=== PATIENT | female | born 1950 | race Caucasian/White ===

== ENCOUNTER 2025-09-06 16:33 | Inpatient (IN) | payer MEDICARE ==
[~2025-09-06] VITALS: Ht 152.4 cm; Wt 42.2 kg
[2025-09-06 17:27] LABS: PLATELET COUNT (AUTO) 204 K/uL (150-450); RED BLOOD CELL COUNT(AUTO) 4.21 MIL/uL (4.0-5.2); RED CELL DISTRIBUTION WIDTH 15.5 % (11.5-15.0); WHITE BLOOD COUNT (AUTO) 5.6 K/uL (4.3-11.0)
[2025-09-06] MEDS ORDERED: VANCOMYCIN 1 GM /D5W 250 ML PB IV ONE (17:35)
[2025-09-06 17:36] LABS: CALCIUM, SERUM 9.4 mg/dL (8.5-10.1); CREATININE 0.7 mg/dL (0.6-1.3); SODIUM SERUM 139 mmol/L (136-145); UREA NITROGEN, BLOOD 17 mg/dL (7-18)
[2025-09-06 17:39] LABS: INR 1.11 (0.91-1.10)
[2025-09-06] MEDS: VANCOMYCIN 1 GM in IV D5W 250 ML IV ONE (17:40)
[2025-09-06] MEDS ORDERED: ONDANSETRON HCL/PF 4 MG/2 ML VIAL IVP PRN (18:30)
[2025-09-06] MEDS ORDERED: MAGNESIUM HYDROXIDE 30 ML UDC PO PRN (18:30)
[2025-09-06] MEDS ORDERED: DOSING PER PHARMACY-VANCOMYCIN IV XX PRN (18:30)
[2025-09-06] MEDS ORDERED: Z GUARD REMEDY 4 OZ OINT TP PRN (18:30)
[2025-09-06] MEDS ORDERED: ZOLPIDEM TARTRATE 5 MG TABLET PO PRN (18:30)
[2025-09-06] MEDS ORDERED: METO50TA16 PO (18:46)
[2025-09-06] MEDS ORDERED: ACET1TAB25 PO (18:46)
[2025-09-06] MEDS ORDERED: SIMV10TA98 PO (18:46)
[2025-09-06] MEDS ORDERED: LISI40TA13 PO (18:46)
[2025-09-06] MEDS: IV NS 0.9% 1,000 ML IV PRN (19:45)
[2025-09-06] MEDS: ENOXAPARIN SODIUM 40 MG/0.4 ML DISP.SYRIN SQ SCH (19:46)
[2025-09-06] MEDS: HYDROCODONE/APAP 10/325MG TABLET PO PRN (19:51)
[2025-09-06 20:00] VITALS: BP_SYST 155; BP_SYST 92; BP_SYST 99; BP_DIAS 70; BP_DIAS 99; TEMP 97.3; TEMP 98.2; O2SAT 95; O2SAT 99
[2025-09-06 21:41] VITALS: BP 155/99; TEMP 97.3; O2SAT 99
[2025-09-07] VITALS: BP 157/90; TEMP 98.1; O2SAT 99
[2025-09-07 04:00] VITALS: BP 164/92; TEMP 97.5; O2SAT 99
[2025-09-07] MEDS: VANCOMYCIN 750 MG in IV D5W 250 ML IV SCH (05:22)
[2025-09-07] MEDS: HYDROMORPHONE 1 MG/1 ML DISP.SYRIN IV ONE (05:37)
[2025-09-07 06:22] LABS: PLATELET COUNT (AUTO) 175 K/uL (150-450); RED BLOOD CELL COUNT(AUTO) 4.09 MIL/uL (4.0-5.2); RED CELL DISTRIBUTION WIDTH 15.3 % (11.5-15.0); WHITE BLOOD COUNT (AUTO) 5.3 K/uL (4.3-11.0)
[2025-09-07 06:33] LABS: CALCIUM, SERUM 8.9 mg/dL (8.5-10.1); CREATININE 0.8 mg/dL (0.6-1.3); PHOSPHORUS 3.0 mg/dL (2.5-4.9); SODIUM SERUM 143 mmol/L (136-145); UREA NITROGEN, BLOOD 12 mg/dL (7-18)
[2025-09-07 07:00] VITALS: BP 142/122; TEMP 97.3; O2SAT 95
[2025-09-07] MEDS: METOPROLOL TARTRATE 50 MG TABLET PO SCH (08:03)
[2025-09-07] MEDS: LISINOPRIL (20MG) 20 MG TABLET PO SCH (08:03)
[2025-09-07] MEDS: PANTOPRAZOLE 40 MG TABLET.DR PO SCH (08:04)
[2025-09-07] MEDS: ACETAMINOPHEN W/ CODEINE#3 1 EA TABLET PO SCH (09:00)
[2025-09-07 11:30] VITALS: BP_SYST 154; BP_SYST 168; BP_DIAS 111; BP_DIAS 93; TEMP 97.3; TEMP 97.7; O2SAT 97; O2SAT 99
[2025-09-07 16:00] VITALS: BP 162/99; TEMP 97.3; O2SAT 95
[2025-09-07] MEDS: SIMVASTATIN 20 MG TABLET PO SCH (17:19)
[2025-09-07 20:00] VITALS: BP 141/93; TEMP 97.3; O2SAT 97
[2025-09-07] MEDS: MAG HYDROX/AL HYDROX/SIMETH 30 ML UDC PO PRN (20:11)
[2025-09-08] VITALS (7 sets, daily range): BP systolic 145–168; BP diastolic 90–103; TEMP 97.3–98.6; O2SAT 95–99
[2025-09-08] MEDS: HYDROCODONE/APAP 10/325MG TABLET PO ONE (01:12)
[2025-09-08 07:32] LABS: RED BLOOD CELL COUNT(AUTO) 4.31 MIL/uL (4.0-5.2); RED CELL DISTRIBUTION WIDTH 15.9 % (11.5-15.0); WHITE BLOOD COUNT (AUTO) 3.8 K/uL (4.3-11.0)
[2025-09-08 07:41] LABS: PLATELET COUNT (AUTO) 84 K/uL (150-450)
[2025-09-08 07:58] LABS: CALCIUM, SERUM 9.0 mg/dL (8.5-10.1); CREATININE 0.7 mg/dL (0.6-1.3); PHOSPHORUS 2.9 mg/dL (2.5-4.9); SODIUM SERUM 140.0 mmol/L (136-145); UREA NITROGEN, BLOOD 10.0 mg/dL (7-18)
[2025-09-08] MEDS: ZINC SULFATE 220 MG CAPSULE PO SCH (09:00)
[2025-09-08] MEDS: ASCORBIC ACID 500 MG TABLET PO SCH (09:00)
[2025-09-08] MEDS: MULTIVITAMINS,THERAGRAN 1 UDTAB TABLET PO SCH (09:00)
[2025-09-08] MEDS: MEGESTROL ACETATE SUSP 400 MG/10 ML UDC PO SCH (09:00)
[2025-09-08] MEDS: ENSURE ENLIVE 237 ML LIQUID (VANILLA) PO SCH (09:00)
[2025-09-08 11:29] LABS: LYMPHOCYTES % (MANUAL) 18 % (16-48); MONOCYTES % (MANUAL) 5 % (0-11.0); NEUTROPHILS % (MANUAL) 77 (42-76); PLATELET ESTIMATE DECREASED
[2025-09-09] VITALS: BP 147/89; TEMP 97.3; O2SAT 98
[2025-09-09 04:00] VITALS: BP 163/90; TEMP 97.5; O2SAT 97
[2025-09-09 07:55] LABS: PLATELET COUNT (AUTO) 174 K/uL (150-450); RED BLOOD CELL COUNT(AUTO) 4.17 MIL/uL (4.0-5.2); RED CELL DISTRIBUTION WIDTH 15.9 % (11.5-15.0); WHITE BLOOD COUNT (AUTO) 5.1 K/uL (4.3-11.0)
[2025-09-09 08:00] VITALS: BP 150/100; TEMP 97.5; O2SAT 98
[2025-09-09 08:16] LABS: CALCIUM, SERUM 8.8 mg/dL (8.5-10.1); CREATININE 0.8 mg/dL (0.6-1.3); PHOSPHORUS 2.8 mg/dL (2.5-4.9); SODIUM SERUM 140.0 mmol/L (136-145); UREA NITROGEN, BLOOD 8.0 mg/dL (7-18)
[2025-09-09] MEDS ORDERED: POTASSIUM CHLORIDE 20 MEQ TAB.PRT.SR PO SCH (10:00)
[2025-09-09 11:00] VITALS: BP 160/82; O2SAT 94
[2025-09-09] MEDS: POTASSIUM CHLORIDE 20 MEQ POWDER PACKET PO ONE (11:33)
[2025-09-09 16:00] VITALS: BP 168/96; TEMP 97.2; O2SAT 100
[2025-09-09 20:00] VITALS: BP 136/77; TEMP 97.5; O2SAT 97
[2025-09-10] VITALS (7 sets, daily range): BP systolic 135–157; BP diastolic 82–107; TEMP 97.2–98.1; O2SAT 98–100
[2025-09-10 07:36] LABS: PLATELET COUNT (AUTO) 118 K/uL (150-450); RED BLOOD CELL COUNT(AUTO) 4.50 MIL/uL (4.0-5.2); RED CELL DISTRIBUTION WIDTH 15.7 % (11.5-15.0); WHITE BLOOD COUNT (AUTO) 5.0 K/uL (4.3-11.0)
[2025-09-10 08:14] LABS: CALCIUM, SERUM 8.6 mg/dL (8.5-10.1); CREATININE 0.7 mg/dL (0.6-1.3); PHOSPHORUS 2.4 mg/dL (2.5-4.9); SODIUM SERUM 138.0 mmol/L (136-145); UREA NITROGEN, BLOOD 8.0 mg/dL (7-18)
[2025-09-10] MEDS: K PHOS NEUTRAL 250 MG TABLET PO ONE (17:03)
[2025-09-11] VITALS: BP_SYST 140; BP_SYST 157; BP_DIAS 80; BP_DIAS 98; TEMP 97.5; TEMP 98.1; O2SAT 100; O2SAT 99
[2025-09-11] MEDS: MORPHINE SULFATE INJ 2 MG/ML DISP.SYRIN IV PRN (03:41)
[2025-09-11 05:00] VITALS: BP 157/96; TEMP 97.9; O2SAT 100
[2025-09-11] MEDS: VANCOMYCIN 1 GM in IV D5W 250ml IV SCH (06:00)
[2025-09-11 07:48] LABS: PLATELET COUNT (AUTO) 150 K/uL (150-450); RED BLOOD CELL COUNT(AUTO) 4.24 MIL/uL (4.0-5.2); RED CELL DISTRIBUTION WIDTH 15.8 % (11.5-15.0); WHITE BLOOD COUNT (AUTO) 5.2 K/uL (4.3-11.0)
[2025-09-11 08:00] VITALS: BP 125/93; TEMP 97.7; O2SAT 99
[2025-09-11 08:26] LABS: CALCIUM, SERUM 9.3 mg/dL (8.5-10.1); CREATININE 0.7 mg/dL (0.6-1.3); PHOSPHORUS 3.0 mg/dL (2.5-4.9); SODIUM SERUM 141.0 mmol/L (136-145); UREA NITROGEN, BLOOD 6.0 mg/dL (7-18)
[2025-09-11 16:00] VITALS: BP 162/101; TEMP 97.3; O2SAT 100
[2025-09-11 20:00] VITALS: BP 141/82; TEMP 97.5; O2SAT 97
[2025-09-11] MEDS: DOXYCYCLINE HYCLATE (100 MG) 100 MG TABLET PO SCH (22:01)
[2025-09-12] VITALS: BP 140/80; TEMP 97.5; O2SAT 100
[2025-09-12] MEDS: ACETAMINOPHEN 325 MG TABLET PO PRN (00:35)
[2025-09-12 04:00] VITALS: BP_SYST 156; BP_SYST 160; BP_DIAS 63; BP_DIAS 70; TEMP 97.5; O2SAT 99
[2025-09-12 06:26] LABS: RED BLOOD CELL COUNT(AUTO) 4.43 MIL/uL (4.0-5.2); RED CELL DISTRIBUTION WIDTH 16.1 % (11.5-15.0); WHITE BLOOD COUNT (AUTO) 4.9 K/uL (4.3-11.0)
[2025-09-12 06:41] LABS: CALCIUM, SERUM 9.7 mg/dL (8.5-10.1); CREATININE 0.6 mg/dL (0.6-1.3); PHOSPHORUS 3.4 mg/dL (2.5-4.9); SODIUM SERUM 141.0 mmol/L (136-145); UREA NITROGEN, BLOOD 9.0 mg/dL (7-18)
[2025-09-12 06:45] LABS: PLATELET COUNT (AUTO) 125 K/uL (150-450)
[2025-09-12 08:00] VITALS: BP 171/109; TEMP 97.6; O2SAT 100
[2025-09-12 08:22] VITALS: BP 163/99
== END 2025-09-12 18:57 | disposition short-term general hospital (02) | DRG 602 ==
LOC: ER 16:40 → MED 18:02 → TELE 18:57
PROVIDERS: ADMIT Student in an Organized Health Care Education/Training Program; ATTEND Student in an Organized Health Care Education/Training Program
DX: L03.115 Cellulitis of right lower limb (principal); E43 Unspecified severe protein-calorie malnutrition; I48.20 Chronic atrial fibrillation, unspecified; Z68.1 Body mass index [BMI] 19.9 or less, adult; L03.116 Cellulitis of left lower limb; I10 Essential (primary) hypertension; D69.6 Thrombocytopenia, unspecified; E78.5 Hyperlipidemia, unspecified; F03.90 Unspecified dementia, unspecified severity, without behavioral disturbance, psychotic disturbance, mood disturbance, and anxiety; I49.5 Sick sinus syndrome; Z87.891 Personal history of nicotine dependence; Z85.118 Personal history of other malignant neoplasm of bronchus and lung; Z79.899 Other long term (current) drug therapy; R60.9 Edema, unspecified; Z98.890 Other specified postprocedural states; S30.91XA Unspecified superficial injury of lower back and pelvis, initial encounter; X58.XXXA Exposure to other specified factors, initial encounter; Y92.9 Unspecified place or not applicable
CPT/HCPCS: 36415; 71045-TC; 80048-TC; 80202-TC; 83735-TC; 83880; 84100-TC; 84443-TC; 84484-TC; 85025-TC; 85027-TC; 85730-TC; 87040-TC; 93307-TC; 93970-TC; 97110-TC; 97530-TC; A4223; A6223; G0378; J1171; J1650; J2270; J3373; J3374; J7030; J7060

== ENCOUNTER 2025-09-14 22:43 | Inpatient (IN) | payer MEDICARE ==
[~2025-09-14] VITALS: Ht 152.4 cm; Wt 49.0 kg
[2025-09-14 22:40] VITALS: BP 144/83; TEMP 98.2; O2SAT 99
[~2025-09-14 22:43] MED LIST: ACET1TAB25 PO; LISI40TA13 PO; METO50TA16 PO; SIMV10TA98 PO
[2025-09-15] VITALS: BP 152/97; TEMP 98.1; O2SAT 98
[2025-09-15] MEDS ORDERED: ONDANSETRON HCL/PF 4 MG/2 ML VIAL IVP PRN
[2025-09-15] MEDS ORDERED: DOSING PER PHARMACY-VANCOMYCIN IV XX PRN
[2025-09-15] MEDS ORDERED: ACETAMINOPHEN 325 MG TABLET PO PRN
[2025-09-15] MEDS ORDERED: MAGNESIUM HYDROXIDE 30 ML UDC PO PRN
[2025-09-15] MEDS ORDERED: ZOLPIDEM TARTRATE 5 MG TABLET PO PRN
[2025-09-15] MEDS ORDERED: HYDROCODONE/APAP 10/325MG TABLET PO PRN
[2025-09-15] MEDS ORDERED: Z GUARD REMEDY 4 OZ OINT TP PRN
[2025-09-15] MEDS ORDERED: MAG HYDROX/AL HYDROX/SIMETH 30 ML UDC PO PRN
[2025-09-15] MEDS: HYDROCODONE/APAP 5/325MG TABLET PO PRN (00:30)
[2025-09-15 05:00] VITALS: BP 152/97; TEMP 98.1; O2SAT 98
[2025-09-15 06:23] LABS: PLATELET COUNT (AUTO) 102 K/uL (150-450); RED BLOOD CELL COUNT(AUTO) 3.81 MIL/uL (4.0-5.2); RED CELL DISTRIBUTION WIDTH 16.4 % (11.5-15.0); WHITE BLOOD COUNT (AUTO) 4.4 K/uL (4.3-11.0)
[2025-09-15 06:38] LABS: CALCIUM, SERUM 8.9 mg/dL (8.5-10.1); CREATININE 0.6 mg/dL (0.6-1.3); PHOSPHORUS 2.9 mg/dL (2.5-4.9); SODIUM SERUM 135.0 mmol/L (136-145); UREA NITROGEN, BLOOD 11.0 mg/dL (7-18)
[2025-09-15 07:30] VITALS: BP 165/94; TEMP 97.5; O2SAT 98
[2025-09-15 08:00] VITALS: BP 165/94; TEMP 97.5; O2SAT 98
[2025-09-15] MEDS: PANTOPRAZOLE 40 MG TABLET.DR PO SCH (09:31)
[2025-09-15] MEDS: VANCOMYCIN HCL 1.25 GM in IV D5W 250 ML IV ONE (09:32)
[2025-09-15] MEDS ORDERED: DOXY-326 PO (09:53)
[2025-09-15] MEDS: METOPROLOL TARTRATE 50 MG TABLET PO SCH (11:22)
[2025-09-15 12:00] VITALS: BP 154/85; TEMP 98.1; O2SAT 100
[2025-09-15] MEDS ORDERED: METOPROLOL TARTRATE 50 MG TABLET PO SCH (17:00)
[2025-09-15] MEDS ORDERED: SIMVASTATIN 10 MG TABLET PO SCH (18:00)
[2025-09-15] MEDS ORDERED: VANCOMYCIN 750 MG in IV D5W 250 ML IV SCH (21:00)
[2025-09-15] MEDS ORDERED: ACETAMINOPHEN PO SCH (21:00)
[2025-09-15] MEDS ORDERED: CODEINE PO SCH (21:00)
[2025-09-16] MEDS ORDERED: LISINOPRIL (20MG) 20 MG TABLET PO SCH (09:00)
== END 2025-09-15 17:13 | DRG 602 ==
LOC: TELE 22:43
PROVIDERS: ADMIT Nurse Practitioner Acute Care; ATTEND Internal Medicine
DX: L03.116 Cellulitis of left lower limb (principal); E43 Unspecified severe protein-calorie malnutrition; I48.20 Chronic atrial fibrillation, unspecified; I49.5 Sick sinus syndrome; Z95.0 Presence of cardiac pacemaker; F03.90 Unspecified dementia, unspecified severity, without behavioral disturbance, psychotic disturbance, mood disturbance, and anxiety; E78.5 Hyperlipidemia, unspecified; I10 Essential (primary) hypertension; Z87.891 Personal history of nicotine dependence; Z85.118 Personal history of other malignant neoplasm of bronchus and lung; L89.156 Pressure-induced deep tissue damage of sacral region; Z68.21 Body mass index [BMI] 21.0-21.9, adult; L89.149 Pressure ulcer of left lower back, unspecified stage; L89.139 Pressure ulcer of right lower back, unspecified stage
CPT/HCPCS: 36415; 80048-TC; 83735-TC; 84100-TC; 85025-TC; 87081-TC; A4223; G0378; J3374; J7030; J7060